=== PATIENT | female | born 1970 | race Caucasian/White ===

== ENCOUNTER 2017-11-20 13:08 | Emergency (ER) | payer MEDICAID, MEDICARE ==
[~2017-11-20 13:08] MED LIST: ALP1 PO; B12 SHOT; CIP500 PO; CYC10 PO; FAM20 PO; FAMO20TA28 PO; HYDR-385 PO; HYDR-389 PO; IBU200 PO; IBU600 PO; IBU800 PO; IBUP-1671 PO; IBUP-1687 PO; IBUP600T22 PO; LAM100 PO; LAMO100T52 PO; LEVO250T55 PO; LOR5 PO; NAPR-1043 PO; ONDA4TAB97 PO; OXY5 PO; OXYB5TAB86 PO; OXYC-689 PO; OXYC5SOL14 PO; PER PO; PHEN200T32 PO; PHENA200 PO; PROM25SU61 RC; RAN150 PO; [UNRECOGNIZED DRUG - OTHER] PO
[2017-11-20] MEDS ORDERED: NS(*) 0.9% 1000 ML BAG 1,000 ML IV ONE (13:10)
[2017-11-20] MEDS ORDERED: ONDANSETRON 4 MG/2 ML VIAL IVP ONE ×2 (13:30→14:30)
[2017-11-20 13:37] LABS: PLATELET COUNT, AUTOMATED 270 K/uL (150-450)
[2017-11-20] MEDS ORDERED: fentaNYL CITR 100 MCG/2 ML AMP IVP ONE (13:40)
--- NOTE | 2017-11-20 13:40 | EKG ---
FACILITY: [facility] - [place] PATIENT NAME: DALY LOPES : [id number] MR: [id number] V: [id number] EXAM DATE: ORDERING PHYSICIAN: RIK MCMILLAN TECHNOLOGIST: MANE Test Reason : EPIGASTRIC PAIN Blood Pressure : / mmHG Vent. Rate : 065 BPM Atrial Rate : 065 BPM P-R Int : 146 ms QRS Dur : 092 ms QT Int : 412 ms P-R-T Axes : 047 004 019 degrees QTc Int : 428 ms Normal sinus rhythm Normal ECG When compared with ECG of 24-FEB-2015 19:41, Nonspecific T wave abnormality no longer evident in Anterior leads Confirmed by GENIE BLANCHARD ([id number]) on 11/20/2017 2:33:26 PM Referred By: HIPOLITO Confirmed By:GENIE BLANCHARD
[2017-11-20] MEDS ORDERED: IOPAMIDOL 76% 75 ML INFUS BTL 75 ML ONE (13:50)
--- NOTE | 2017-11-20 14:15 | ER Report ---
History and Physical Time Seen By MD: 13:10 Hx. of Stated Complaint: PATIENT WAS SENT BY DR BRALDEY FOR POSSIBLE PANCREATITIS. SHE IS REPORTING UPPER ABDOMINAL PAIN THAT GOES TO THE BACK. HPI/ROS CHIEF COMPLAINT: Epigastric abdominal pain HISTORY OF PRESENT ILLNESS: Patient is a 47 -year-old female with past medical history significant for endometriosis and endometritis is post hysterectomy also history of interstitial cystitis. She is referred to the emergency department for concerns of possible "chronic pancreatitis" she has been having epigastric abdominal pain that radiates to the back. Currently pain is 7 out of 10 in intensity associated with nausea without vomiting. She denies fevers or chills. She denies chest pain. The symptoms began approximately 2 months ago has been episodic, they do seem worse with meals, also worse with laying flat. Patient was sent by her primary care provider for imaging study and CT scan of the abdomen and pelvis. Patient drinks one to 2 alcoholic drinks per week. She is not a smoker. She still has her gallbladder no history of prior pancreatitis or gallstones. REVIEW OF SYSTEMS: Constitutional: No fever, no chills. Eyes: No discharge. ENT: No sore throat. Cardiovascular: No chest pain, no palpitations. Respiratory: No cough, no shortness of breath. Gastrointestinal: Epigastric abdominal pain associated with nausea Genitourinary: No hematuria. Musculoskeletal: No back pain. Skin: No rashes. Neurological: No headache. Allergies: Coded Allergies: Penicillins (Verified Allergy, Severe, BREATHING PROBLEMS, 03/13/15) prochlorperazine (Verified Allergy, Severe, PSYCHOSIS, 03/13/15) ciprofloxacin (Verified Allergy, Mild, HALLUCINATIONS, 03/13/15) zolpidem (Verified Allergy, Unknown, 01/05/16) Sulfa (Sulfonamide Antibiotics) (Verified Adverse Reaction, Severe, PSYCHOSIS, 03/13/15) diphenhydramine (Verified Adverse Reaction, Mild, "I GET ANGRY", 03/13/15) phenazopyridine (Unverified Adverse Reaction, Mild, REPORTS SHE TURNED YELLOW, 03/23/15) HAS TAKEN THIS MEDS MANY TIMES BEFORE WITHOUT A REACTION trimethoprim (Unverified Adverse Reaction, Mild, FELT FUNNY IN MOUTH AND TIGHTNESS IN THROAT, 03/23/15) DENIES ANY BREATHING PROBLEMS. Home Meds Active Scripts Ondansetron Hcl (ZOFRAN) 4 Mg Tablet, 4 MG PO Q8H for Nausea, #15 TAB 0 Refills Prov:RIK MCMILLAN MD 11/20/17 Pantoprazole Sodium (PANTOPRAZOLE SODIUM) 40 Mg Tablet.dr, 40 MG PO BID, #28 TAB.SR 0 Refills Prov:RIK MCMILLAN MD 11/20/17 Oxycodone Hcl/Acetaminophen (PERCOCET 5-325 MG TABLET) 1 Each Tablet, 1 EACH PO Q4H for PAIN, #25 TAB 0 Refills Prov:RIK MCMILLAN MD 11/20/17 Reported Medications Ibuprofen (IBUPROFEN) 600 Mg Tablet, 1 TAB PO TID Y for PAIN, #30 TAB 01/08/16 Ibuprofen (MOTRIN IB) 200 Mg Tablet, 3 TAB PO Q6-8H Don't take over the counter and prescription motrin at the same time. 03/20/15 Ibuprofen (ADVIL) 200 Mg Tablet, 3 TAB PO Q6-8H Y for PAIN Take one or the other, do not take over the counter advil and prescription motrin concurrently. 03/13/15 Oxybutynin Chloride (OXYBUTYNIN CHLORIDE) 5 Mg Tablet, 5 MG PO HS, TAB 02/24/15 Lamotrigine (Lamictal) 100 Mg Tab, 187.5 MG PO QHS, 0 Refills 08/31/11 Alprazolam (Xanax) 1 Mg Tab, 1 MG PO HS, 0 Refills 07/29/11 Discontinued Reported Medications Ondansetron Hcl (ZOFRAN) 4 Mg Tablet, 4 MG PO Q6H Y for NAUSEA, #30 TAB 01/08/16 Hydrocodone Bit/Acetaminophen (HYDROCODON-ACETAMINOPHEN 5-325) 1 Each Tablet, 1 EACH PO Q4-6H Y for PAIN, #30 TAB 01/08/16 Levofloxacin 250 Mg Tab (LEVAQUIN 250 MG TAB) 250 Mg Tablet, 250 MG PO QDAY, #10 01/08/16 Famotidine (PEPCID) 20 Mg Tablet, 20 MG PO BID, #20 TAB 01/08/16 Past Medical/Surgical History Past medical history for endometritis status post hysterectomy, history of interstitial cystitis. Hx Smoking: No Smoking Status: Never Smoker Hx Substance Use Disorder: No Hx Alcohol Use: Yes Constitutional Vital Sign - Last 24 Hours 4/511/20/17 11/20/17 11/20/17 13:12 13:16 13:30 13:38 Temp 98.3 Pulse 72 69 Resp 20 B/P (MAP) 178/88 178/88 (118) 133/66 (88) Pulse Ox 97 91 O2 Delivery Room Air 11/20/17 11/20/17 11/20/17 11/20/17 13:45 14:08 14:15 14:30 Pulse 61 B/P (MAP) 134/79 (97) 123/58 (79) 122/68 (86) Pulse Ox 90 11/20/17 11/20/17 11/20/17 14:38 14:45 14:50 Pulse 68 69 B/P (MAP) 130/71 (90) Pulse Ox 96 87 Physical Exam General/Constitutional: Patient is awake, alert, nontoxic and in no acute respiratory distress. Appears uncomfortable secondary to pain Head: Normocephalic and atraumatic. Eyes: Conjunctival clear, Sclera are clear and anicteric. Ears:External canals are clear. Tympanic membranes are clear with normal landmarks and light reflex. Nares: No rhinorrhea or bleeding. Turbinates are pink and moist. Oropharyngeal: Mucous membranes are moist.. Uvula is midline and symmetrical. Neck: Supple, no adenopathy. Cardiovascular: Heart is regular rate and rhythm without audible murmurs, rubs or gallops. Pulmonary: Lungs are clear to auscultation bilaterally. There are no wheezes, rales, or rhonchi. Chest rise is symmetrical Abdomen: Epigastric abdominal pain worse to deep palpation no rebound tenderness. Extremities: No gross deformities, No peripheral cyanosis. Able to move all 4 extremities. Neuro: Alert and oriented X3, Skin: No rashes, skin is warm dry and well perfused. Medical Decision Making Data Points Result Diagram: 11/20/17 1322 11/20/17 1322 Laboratory Hematology Test 11/20/17 13:13 11/20/17 13:22 Urine Color Yellow Urine Clarity Clear Urine pH 6.0 pH (4.8-9.5) Urine Specific [place] 1.013 Urine Protein Negative mg/dL (NEGATIVE) Urine Glucose (UA) Negative mg/dL (NEGATIVE) Urine Ketones Negative mg/dL (NEGATIVE) Urine Blood Negative (NEGATIVE) Urine Nitrite Negative (NEGATIVE) Urine Bilirubin Negative (NEGATIVE) Urine Urobilinogen Negative mg/dL (0.2-1.9) Urine Leukocyte Esterase Negative (NEGATIVE) Urine RBC None /HPF (0-2/HPF) Urine WBC 3 /HPF (0-5/HPF) Urine Squamous Epithelial Cells Many /LPF (</=FEW) Urine Bacteria Few /HPF (NONE-FEW) Urine Mucus None /HPF (NONE-FEW) Red Blood Count 4.51 M/uL (4.17-5.56) Mean Corpuscular Volume 93.3 fL (80.0-96.0) Mean Corpuscular Hemoglobin 32.5 pg (26.0-33.0) Mean Corpuscular Hemoglobin Concent 34.8 g/dL (32.0-36.0) Red Cell Distribution Width 13.6 % (11.5-14.5) Mean Platelet Volume 8.0 fL (7.2-11.1) Neutrophils (%) (Auto) 52.2 % (39.4-72.5) Lymphocytes (%) (Auto) 36.2 % (17.6-49.6) Monocytes (%) (Auto) 8.7 % (4.1-12.4) Eosinophils (%) (Auto) 2.0 % (0.4-6.7) Basophils (%) (Auto) 0.9 % (0.3-1.4) Nucleated RBC Relative Count (auto) 0.0 /100WBC Neutrophils # (Auto) 2.5 K/uL (2.0-7.4) Lymphocytes # (Auto) 1.8 K/uL (1.3-3.6) Monocytes # (Auto) 0.4 K/uL (0.3-1.0) Eosinophils # (Auto) 0.1 K/uL (0.0-0.5) Basophils # (Auto) 0.0 K/uL (0.0-0.1) Nucleated RBC Absolute Count (auto) 0.00 K/uL Sodium Level 139 mmol/L (137-145) Potassium Level 3.8 mmol/L (3.5-5.0) Chloride Level 100 mmol/L (98-107) Carbon Dioxide Level 24 mmol/L (22-31) Blood Urea Nitrogen 10 mg/dl (7-18) Creatinine 0.80 mg/dl (0.52-1.04) Glomerular Filtration Rate Calc > 60.0 Random Glucose 98 mg/dl (75-110) Calcium Level 9.5 mg/dl (8.4-10.2) Total Bilirubin 0.5 mg/dl (0.2-1.3) Aspartate Amino Transf (AST/SGOT) 34 U/L (0-35) Alanine Aminotransferase (ALT/SGPT) 36 U/L (0-56) Alkaline Phosphatase 88 U/L (0-126) Total Protein 8.1 gm/dl (6.3-8.2) Albumin 4.5 g/dl (3.5-5.0) Amylase Level 130 U/L (0-110) Lipase 237 U/L (23-300) Helicobacter pylori IgG Antibody Negative (NEGATIVE) Chemistry Test 11/20/17 13:13 11/20/17 13:22 Urine Color Yellow Urine Clarity Clear Urine pH 6.0 pH (4.8-9.5) Urine Specific [place] 1.013 Urine Protein Negative mg/dL (NEGATIVE) Urine Glucose (UA) Negative mg/dL (NEGATIVE) Urine Ketones Negative mg/dL (NEGATIVE) Urine Blood Negative (NEGATIVE) Urine Nitrite Negative (NEGATIVE) Urine Bilirubin Negative (NEGATIVE) Urine Urobilinogen Negative mg/dL (0.2-1.9) Urine Leukocyte Esterase Negative (NEGATIVE) Urine RBC None /HPF (0-2/HPF) Urine WBC 3 /HPF (0-5/HPF) Urine Squamous Epithelial Cells Many /LPF (</=FEW) Urine Bacteria Few /HPF (NONE-FEW) Urine Mucus None /HPF (NONE-FEW) White Blood Count 4.8 k/uL (4.5-11.0) Red Blood Count 4.51 M/uL (4.17-5.56) Hemoglobin 14.7 g/dL (12.0-16.0) Hematocrit 42.1 % (34.0-47.0) Mean Corpuscular Volume 93.3 fL (80.0-96.0) Mean Corpuscular Hemoglobin 32.5 pg (26.0-33.0) Mean Corpuscular Hemoglobin Concent 34.8 g/dL (32.0-36.0) Red Cell Distribution Width 13.6 % (11.5-14.5) Platelet Count 270 K/uL (150-450) Mean Platelet Volume 8.0 fL (7.2-11.1) Neutrophils (%) (Auto) 52.2 % (39.4-72.5) Lymphocytes (%) (Auto) 36.2 % (17.6-49.6) Monocytes (%) (Auto) 8.7 % (4.1-12.4) Eosinophils (%) (Auto) 2.0 % (0.4-6.7) Basophils (%) (Auto) 0.9 % (0.3-1.4) Nucleated RBC Relative Count (auto) 0.0 /100WBC Neutrophils # (Auto) 2.5 K/uL (2.0-7.4) Lymphocytes # (Auto) 1.8 K/uL (1.3-3.6) Monocytes # (Auto) 0.4 K/uL (0.3-1.0) Eosinophils # (Auto) 0.1 K/uL (0.0-0.5) Basophils # (Auto) 0.0 K/uL (0.0-0.1) Nucleated RBC Absolute Count (auto) 0.00 K/uL Glomerular Filtration Rate Calc > 60.0 Calcium Level 9.5 mg/dl (8.4-10.2) Total Bilirubin 0.5 mg/dl (0.2-1.3) Aspartate Amino Transf (AST/SGOT) 34 U/L (0-35) Alanine Aminotransferase (ALT/SGPT) 36 U/L (0-56) Alkaline Phosphatase 88 U/L (0-126) Total Protein 8.1 gm/dl (6.3-8.2) Albumin 4.5 g/dl (3.5-5.0) Amylase Level 130 U/L (0-110) Lipase 237 U/L (23-300) Helicobacter pylori IgG Antibody Negative (NEGATIVE) Urinalysis Test 11/20/17 13:13 Urine Color Yellow Urine Clarity Clear Urine pH 6.0 pH (4.8-9.5) Urine Specific [place] 1.013 Urine Protein Negative mg/dL (NEGATIVE) Urine Glucose (UA) Negative mg/dL (NEGATIVE) Urine Ketones Negative mg/dL (NEGATIVE) Urine Blood Negative (NEGATIVE) Urine Nitrite Negative (NEGATIVE) Urine Bilirubin Negative (NEGATIVE) Urine Urobilinogen Negative mg/dL (0.2-1.9) Urine Leukocyte Esterase Negative (NEGATIVE) Urine RBC None /HPF (0-2/HPF) Urine WBC 3 /HPF (0-5/HPF) Urine Squamous Epithelial Cells Many /LPF (</=FEW) Urine Bacteria Few /HPF (NONE-FEW) Urine Mucus None /HPF (NONE-FEW) EKG/Imaging EKG Interpretation EKG shows sinus rhythm with ventricular rate of [address] segment or T-wave abnormalities noted. Monitor Interpretation: Normal Sinus Rhythm ED Course/Re-evaluation Clinical Indication for ER IV: Hydration, IV Access ED Course 11/20/2017 2:14:21 pm patient with epigastric abdominal pain. Plan at this time will be to obtain CT scan with IV contrast of the abdomen and pelvis including abdominal workup to include CBC amylase lipase and comprehensive metabolic panel. We'll also order H. pylori screen. Patient will get 4 mg of IV Zofran and 50 g of fentanyl for pain Re-evaluation 11/20/2017 2:27:56 pm patient still having nausea and pain rating at about a 5 out of 10 in intensity. Blood work is unremarkable H pylori screen is negative. Awaiting official CT read at this time. We'll give additional pain medication 0.5 mg of Dilaudid and another 4 of Zofran IV and 20 of Pepcid IV Decision to Disposition Date: Nov 20, 2017 Decision to Disposition Time: 16:00 Depart Departure Latest Vital Signs Vital Signs Date Time Temp Pulse Resp B/P (MAP) Pulse Ox O2 Delivery O2 Flow Rate FiO2 11/20/17 14:50 69 87 11/20/17 14:45 130/71 (90) 11/20/17 13:12 98.3 20 Room Air Impression: Primary Impression: Epigastric abdominal pain Condition: Improved Disposition: HOME OR SELF-CARE Referrals: MARIO LOZANO PA-C (PCP) 1 Week If symptoms persist New Scripts Ondansetron Hcl (ZOFRAN) 4 Mg Tablet 4 MG PO Q8H for Nausea, #15 TAB 0 Refills Prov: RIK MCMILLAN MD 11/20/17 Pantoprazole Sodium (PANTOPRAZOLE SODIUM) 40 Mg Tablet.dr 40 MG PO BID, #28 TAB.SR 0 Refills Prov: RIK MCMILLAN MD 11/20/17 Oxycodone Hcl/Acetaminophen (PERCOCET 5-325 MG TABLET) 1 Each Tablet 1 EACH PO Q4H for PAIN, #25 TAB 0 Refills Prov: RIK MCMILLAN MD 11/20/17 Patient Instructions: Epigastric Pain (ED) Additional Instructions: Keep your appointment with [facility] gastroenterology on December 04. RIK MCMILLAN MD Nov 20, 2017 14:15
[2017-11-20] MEDS ORDERED: HYDROmorphone* 1 MG/ML 1 MG/ML ML IVP ONE (14:30)
[2017-11-20] MEDS ORDERED: FAMOTIDINE(*) 20MG/50ML PREMIX 50 ML IVPB ONE (14:30)
--- NOTE | 2017-11-20 14:42 | RADIOLOGY IMAGING REPORT ---
FACILITY: [facility] PATIENT NAME: Cecilia Khan : 1970 MR: [id number] V: [id number] EXAM DATE: ORDERING PHYSICIAN: RIK MCMILLAN TECHNOLOGIST: Location: [facility] Patient: Cecilia Khan : 1970 Visit/Account:[id number] Date of Sevice: 11/20/2017 ABDOMEN/PELVIS WITH CONTRAST HISTORY: epigastric abdominal pain TECHNIQUE: Following administration of IV contrast contiguous axial images acquired through the abdom en/pelvis. Coronal and sagittal reformatting also performed. Dose Lowering Technique One of the following dose optimization techniques was utilized in the performance of this exam: Autom ated exposure control; adjustment of the mA and/or kV according to the patient's size; or use of an i terative reconstruction technique. Specific details can be referenced in the facility's radiology C T exam operational policy. CONTRAST: 75 mL Isovue-370 COMPARISON: December 21, 2015 FINDINGS: Visualized lung bases: Negative. Hepatobiliary: Negative. Spleen: Negative. Adrenals: Negative. Pancreas: Negative. 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 There is no evidence of hydronephrosis or hydr oureter Genitalia: Hysterectomy GI: The appendix is visualized and does not appear inflamed. There is no evidence of bowel wall thi ckening or bowel obstruction. Vessels/spaces/nodes: Negative. Bones/soft tissues: Mild spondylotic changes of the thoracolumbar spine. Additional findings: None pertinent. 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 Report Dictated By: Rebeca Zuniga MD at 11/20/2017 2:26 PM Report E-Signed By: Rebeca Zuniga MD at 11/20/2017 2:36 PM WSN:[email or web address]
[2017-11-20 14:45] VITALS: BP 130/71
[2017-11-20] MEDS ORDERED: OXYC-865 PO (14:51)
[2017-11-20] MEDS ORDERED: ONDA4TAB97 PO (14:51)
[2017-11-20] MEDS ORDERED: PANT40TA65 PO (14:51)
== END 2017-11-20 15:13 | disposition home or self-care (01) ==
LOC: ER 13:12
DX: R10.13 Epigastric pain (principal)
CPT/HCPCS: 74177; 81001; 82150; 83690; 85025; 86677; 93005; 96361; 96365; 96375; 96376; 99284; J1170; J2405; J3010; J3490; J7030; Q9967; 82040; 82247; 82310; 82374; 82435; 82565; 82947; 84075; 84132; 84155; 84295; 84450; 84460; 84520

== ENCOUNTER → 2017-12-04 | Outpatient (CLI) | payer MEDICARE ==
[~2017-12-04] MED LIST changes: +OXYC-865 PO; +PANT40TA65 PO
== END ==
LOC: LAB 16:06
PROVIDERS: ATTEND Nurse Practitioner Family
DX: R19.7 Diarrhea, unspecified (principal); K31.84 Gastroparesis; R11.0 Nausea; R10.13 Epigastric pain
CPT/HCPCS: 36415; 82150; 82784; 83036; 83690; 84165; 86235

== ENCOUNTER → 2017-12-09 | Outpatient (CLI) | payer MEDICARE ==
--- NOTE | 2017-12-09 15:40 | RADIOLOGY IMAGING REPORT ---
FACILITY: PATIENT NAME: Cecilia Khan : 1970 MR: [id number] V: [id number] EXAM DATE: ORDERING PHYSICIAN: BORIS PAZ TECHNOLOGIST: Location: [facility] - [place], [place] Patient: Cecilia Khan : 1970 Visit/Account:[id number] Date of Sevice: 12/09/2017 GALLBLADDER W KINEVAC HISTORY: Epigastric pain COMPARISON: None. FINDINGS: Gallbladder: There is no demonstration of gallbladder stones, gallbladder sludge gallbladder wall thi ckening pericholecystic fluid or biliary ductal dilatation. The patient's pre-CCK gallbladder volume was 13.6 mL. There is maximum gallbladder contraction at 10 minutes following intravenous administr ation of 2.9 mL of CCK. This is equivalent to a gallbladder ejection fraction of 65.5%. The patient 's maximum pain was 2-3 out of 10 following CCK injection IMPRESSION: Gallbladder ejection fraction 65.5% Report Dictated By: Rebeca Zuniga MD at 12/09/2017 2:35 PM Report E-Signed By: Rebeca Zuniga MD at 12/09/2017 3:36 PM WSN:LARA
== END ==
LOC: US 00:36
PROVIDERS: ATTEND Nurse Practitioner Family
DX: R10.13 Epigastric pain (principal)
CPT/HCPCS: 76705

== ENCOUNTER 2018-01-01 01:00 | Day surgery (SDC) | payer MEDICARE ==
[2018-01-01] VITALS (7 sets, daily range): BP systolic 95–141; BP diastolic 52–94
[~2018-01-01] VITALS: Ht 157.5 cm; Wt 70.3 kg
[2018-01-01] MEDS ORDERED: PROPOFOL EMUL(*) 10MG/ML 20 ML 40 ML ONE (10:11)
[2018-01-01] MEDS ORDERED: NORMOSOL R SOLN(*) 1000 ML BAG 1,000 ML IV PRN (11:30)
[2018-01-01] MEDS ORDERED: LIDOCAINE/SOD BICARB 8.4% SYR ID ONE (11:30)
[2018-01-01] MEDS ORDERED: PROPOFOL EMUL(*) 10MG/ML 20 ML 20 ML ONE ×2 (14:04→14:38)
[2018-01-01] MEDS ORDERED: SUCCINYLCHOL CHL 200MG/10ML VL ONE (14:30)
== END 2018-01-01 16:40 | disposition home or self-care (01) ==
LOC: OR 01:00
PROVIDERS: ATTEND Internal Medicine Gastroenterology
DX: K64.8 Other hemorrhoids (principal); K57.30 Diverticulosis of large intestine without perforation or abscess without bleeding; K44.9 Diaphragmatic hernia without obstruction or gangrene; K22.10 Ulcer of esophagus without bleeding; K29.70 Gastritis, unspecified, without bleeding
CPT/HCPCS: 00811; 43239; 45380; 88305; 88313; 88344; J0330; J2704

== ENCOUNTER → 2019-01-28 | Outpatient (CLI) | payer MEDICARE, OTHER ==
[2019-01-28 10:34] LABS: PLATELET COUNT, AUTOMATED 296 K/uL (150-450)
[2019-01-28 11:23] LABS: LDL CHOLESTEROL 150 mg/dl
== END ==
LOC: LAB 10:05
PROVIDERS: ATTEND Nurse Practitioner Family
DX: Z13.29 Encounter for screening for other suspected endocrine disorder (principal); Z13.220 Encounter for screening for lipoid disorders; R55 Syncope and collapse; R20.2 Paresthesia of skin; E78.2 Mixed hyperlipidemia; R63.5 Abnormal weight gain; R19.7 Diarrhea, unspecified
CPT/HCPCS: 36415; 82040; 82247; 82310; 82374; 82435; 82465; 82565; 82947; 83718; 83735; 84075; 84132; 84155; 84295; 84439; 84443; 84450; 84460; 84478; 84481; 84484; 84520; 84550; 85025; 86140

== ENCOUNTER → 2019-01-29 | Outpatient (CLI) | payer MEDICARE, OTHER | LOC: US 04:04 | PROVIDERS: ATTEND Nurse Practitioner Family | DX: Z13.220 Encounter for screening for lipoid disorders (principal); Z13.29 Encounter for screening for other suspected endocrine disorder; R55 Syncope and collapse; R20.2 Paresthesia of skin; E78.2 Mixed hyperlipidemia; R63.5 Abnormal weight gain; R19.7 Diarrhea, unspecified | CPT/HCPCS: 93306 ==

== ENCOUNTER → 2019-02-19 | Outpatient (CLI) | payer MEDICARE, OTHER ==
[~2019-02-19] MED LIST changes: +METH-543 PO; +METH4TAB66 PO
--- NOTE | 2019-02-19 14:27 | RADIOLOGY IMAGING REPORT ---
FACILITY: [facility] [place]IENT NAME: Cecilia Khan : 1970 MR: [id number] V: [id number] EXAM DATE: ORDERING PHYSICIAN: JACOB MARIN TECHNOLOGIST: Location: [facility] Patient: Cecilia Khan : 1970 Visit/Account:[id number] Date of Sevice: 02/19/2019 EXAMINATION: MRI Cervical spine without intravenous contrast HISTORY: Tingling sensation and numbness in the left arm. Neck pain. COMPARISON: Cervical spine radiographs dated 05/22/2015. TECHNIQUE: Multi-planar, multi-sequence cervical spine MRI was performed without intravenous contras t administration. FINDINGS: Alignment: Normal. Vertebral marrow signal: Mild discogenic bone marrow edema at C6-C7. Cranio-cervical junction: Mild degenerative changes with normal alignment. Visualized posterior fossa: Negative. Soft tissues: Negative. Cervical cord: Negative. Disc Spaces: C1-2: No significant stenosis. C2-3: Negative. C3-4: Left facet hypertrophy with moderate left neural foraminal stenosis. C4-5: Left greater than right facet hypertrophy with mild left neural foraminal stenosis. C5-6: Circumferential disc osteophyte complex, eccentric to the left. Small posterior annular fissur e. Mild facet hypertrophy. Mild spinal canal stenosis. Mild right and moderate left neural foramin al stenosis. C6-7: Mild to moderate disc height loss with circumferential disc osteophyte complex, eccentric to th e left. Mild facet hypertrophy. Mild spinal canal stenosis. Moderate right and severe left neural foraminal stenosis. C7-T1: Mild disc bulge and facet hypertrophy with no significant stenosis. Upper thoracic spine: Negative. IMPRESSION: Multilevel degenerative disc disease and facet hypertrophy, most severe at C6-C7. Report Dictated By: Cuco Walters MD at 02/19/2019 2:16 PM Report E-Signed By: Cuco Walters MD at 02/19/2019 2:21 PM WSN:[id number]
== END ==
LOC: MRI 00:39
PROVIDERS: ATTEND Nurse Practitioner Family
DX: R20.2 Paresthesia of skin (principal); R73.09 Other abnormal glucose
CPT/HCPCS: 72141

== ENCOUNTER 2019-02-20 09:45 | Emergency (ER) | payer MEDICARE, OTHER ==
[~2019-02-20 09:45] MED LIST changes: -METH-543 PO; -METH4TAB66 PO
--- NOTE | 2019-02-20 09:51 | ER Report ---
History and Physical Time Seen By MD: 10:04 HPI/MARLA CHIEF COMPLAINT: Neck pain HISTORY OF PRESENT ILLNESS: Patient is a 48-year-old female who is complaining of upper cervical pain of an acute on chronic nature. Since October of this year she has noticed pain mostly to the upper arms with radiation and electric-like shocks down the hands particularly worse in the right hand but now worsening in the last and involving mostly the 4th and 5th fingers. Difficulty grabbing pens and states that she has to "shake her arms out from time to time as they feel like they go to sleep. She is being worked up by her primary care provider and had an MRI of her cervical spine performed yesterday shows multiple level degen erative changes. She states since that time her pain is significantly increased. She has been taking Motrin and Tylenol for symptomatic relief. She had been using a steroid taper which did help her pain but she has taken the last dose and now is in severe pain associated with nausea. He denies any fevers or chills she denies any headaches. REVIEW OF SYSTEMS: Respiratory: No cough, no dyspnea. Cardiovascular: No chest pain, no palpitations. Gastrointestinal: No vomiting, no abdominal pain. Musculoskeletal: Neck pain. Allergies: Coded Allergies: Penicillins (Verified Allergy, Severe, BREATHING PROBLEMS, 12/26/17) prochlorperazine (Verified Allergy, Severe, PSYCHOSIS, 12/26/17) ciprofloxacin (Verified Allergy, Mild, HALLUCINATIONS, 12/26/17) zolpidem (Verified Allergy, Unknown, 12/26/17) Sulfa (Sulfonamide Antibiotics) (Verified Adverse Reaction, Severe, PSYCHOSIS, 12/26/17) diphenhydramine (Verified Adverse Reaction, Mild, "I GET ANGRY", 12/26/17) phenazopyridine (Unverified Adverse Reaction, Mild, REPORTS SHE TURNED YELLOW, 12/26/17) HAS TAKEN THIS MEDS MANY TIMES BEFORE WITHOUT A REACTION trimethoprim (Unverified Adverse Reaction, Mild, FELT FUNNY IN MOUTH AND TIGHTNESS IN THROAT, 12/26/17) DENIES ANY BREATHING PROBLEMS. Home Meds Active Scripts Methylprednisolone (METHYLPREDNISOLONE) 4 Mg Tab.ds.pk, 4 MG PO DIRECTED, #1 PACK 0 Refills Prov:RIK MCMILLAN MD 02/20/19 Methocarbamol (ROBAXIN-750) 750 Mg Tablet, 1500 MG PO QID for Muscle Relaxant, #40 TAB 0 Refills Prov:RIK MCMILLAN MD 02/20/19 Ondansetron Hcl (ZOFRAN) 4 Mg Tablet, 4 MG PO Q8H for Nausea, #15 TAB 0 Refills Prov:RIK MCMILLAN MD 02/20/19 Oxycodone Hcl/Acetaminophen (PERCOCET 5-325 MG TABLET) 1 Each Tablet, 1 EACH PO Q4H for PAIN, #30 TAB 0 Refills Prov:RIK MCMILLAN MD 02/20/19 Ondansetron Hcl (ZOFRAN) 4 Mg Tablet, 4 MG PO Q8H for Nausea, #15 TAB 0 Refills Prov:RIK MCMILLAN MD 11/20/17 Reported Medications Ibuprofen (MOTRIN IB) 200 Mg Tablet, 3 TAB PO Q6-8H Don't take over the counter and prescription motrin at the same time. 03/20/15 Ibuprofen (ADVIL) 200 Mg Tablet, 3 TAB PO Q6-8H PRN for PAIN Take one or the other, do not take over the counter advil and prescription motrin concurrently. 03/13/15 Lamotrigine (Lamictal) 100 Mg Tab, 187.5 MG PO QHS, 0 Refills 08/31/11 Alprazolam (Xanax) 1 Mg Tab, 1 MG PO HS, 0 Refills 07/29/11 Discontinued Reported Medications Oxybutynin Chloride (OXYBUTYNIN CHLORIDE) 5 Mg Tablet, 5 MG PO HS PRN for urinary problems, TAB 02/24/15 Past Medical/Surgical History Past medical history for endometritis status post hysterectomy, history of interstitial cystitis. Hx Smoking: No Smoking Status: Never Smoker Hx Substance Use Disorder: No Hx Alcohol Use: Yes Constitutional Vital Sign - Last 24 Hours 02/20/19 02/20/19 09:49 12:14 Temp 97.9 Pulse 71 85 Resp 16 16 B/P (MAP) 132/82 138/85 (102) Pulse Ox 93 90 O2 Delivery Room Air Room Air Physical Exam General Appearance: The patient is alert and appears somewhat uncomfortable unable to find position of comfort[ ] Eyes: Pupils equal and round no injection. Musculoskeletal: Neck: Neck is supple and non tender. Extremities have full range of motion and are non tender. Skin: No rashes or lesions. Medical Decision Making ED Course/Re-evaluation ED Course 02/20/2019 11:45:52 am MRI from yesterday was reviewed which shows multiple level degenerative changes worse at C6 and C7. The patient's pain improved with fentanyl and nausea much better after Zofran. I'll discharge patient home with instructions to follow-up with her primary care provider this coming week Decision to Disposition Date: Feb 20, 2019 Decision to Disposition Time: 11:57 Depart Departure Latest Vital Signs Vital Signs Date Time Temp Pulse Resp B/P (MAP) Pulse Ox O2 Delivery O2 Flow Rate FiO2 02/20/19 12:14 85 16 138/85 (102) 90 Room Air 02/20/19 09:49 97.9 Impression: Primary Impression: Cervical radicular pain Condition: Improved Disposition: HOME OR SELF-CARE Referrals: JACOB MARIN [employer], [facility] (PCP) 2 Days JERO ALVAREZ MD call to schedule appointmrnt for evaluation of cervical radiculitis New Scripts Methylprednisolone (METHYLPREDNISOLONE) 4 Mg Tab.ds.pk 4 MG PO DIRECTED, #1 PACK 0 Refills Prov: RIK MCMILLAN MD 02/20/19 Methocarbamol (ROBAXIN-750) 750 Mg Tablet 1500 MG PO QID for Muscle Relaxant, #40 TAB 0 Refills Prov: RIK MCMILLAN MD 02/20/19 Ondansetron Hcl (ZOFRAN) 4 Mg Tablet 4 MG PO Q8H for Nausea, #15 TAB 0 Refills Prov: RIK MCMILLAN MD 02/20/19 Oxycodone Hcl/Acetaminophen (PERCOCET 5-325 MG TABLET) 1 Each Tablet 1 EACH PO Q4H for PAIN, #30 TAB 0 Refills Prov: RIK MCMILLAN MD 02/20/19 Departure Forms: ER Transition Record, Medications Reconciliation, Off Work/School Form, School or Work Release?: Work Number of days to be released: 2 Patient Portal Information Patient Instructions: Cervical Radiculopathy (GEN) RIK MCMILLAN MD Feb 20, 2019 09:51
[2019-02-20] MEDS ORDERED: ONDANSETRON 4 MG/2 ML VIAL IVP ONE (10:25)
[2019-02-20] MEDS ORDERED: fentaNYL CITR 100 MCG/2 ML AMP IVP ONE ×2 (10:30→11:40)
[2019-02-20] MEDS ORDERED: METH-543 PO (11:51)
[2019-02-20] MEDS ORDERED: ONDA4TAB97 PO (11:51)
[2019-02-20] MEDS ORDERED: OXYC-865 PO (11:51)
[2019-02-20] MEDS ORDERED: METH4TAB66 PO (12:11)
[2019-02-20 12:14] VITALS: BP 138/85
== END 2019-02-20 12:36 | disposition home or self-care (01) ==
LOC: ER 09:53
DX: M54.12 Radiculopathy, cervical region (principal); Z79.899 Other long term (current) drug therapy
CPT/HCPCS: 96374; 96376; 99283; J2405; J3010